=== PATIENT | female | born 1985 | race Caucasian/White ===

== ENCOUNTER 2018-04-08 19:54 | Inpatient (IN) | payer BC ==
[2018-04-08] MEDS ORDERED: Ibuprofen 800 MG TAB PO PRN (19:59)
[2018-04-08] MEDS ORDERED: Promethazine HCl 25 MG/ML VIAL IM PRN (19:59)
[2018-04-08] MEDS ORDERED: Lidocaine 1% (PF) 30 ML VIAL SC PRN (19:59)
[2018-04-08] MEDS ORDERED: Acetaminophen 500 MG TAB PO PRN (19:59)
[2018-04-08] MEDS ORDERED: HYDROcodone/Acetaminophen 5/325 mg Tablet PO PRN ×2 (19:59)
[2018-04-08] MEDS ORDERED: Docusate 100 MG CAP PO PRN (19:59)
[2018-04-08] MEDS ORDERED: NS w/ Oxytocin 10 units 500 ML IV SCH ×2 (19:59)
[2018-04-08] MEDS ORDERED: Misoprostol 200 MCG TAB PR PRN (19:59)
[2018-04-08] MEDS ORDERED: Ondansetron PF 4 MG/2 ML Vial IVP PRN (19:59)
[2018-04-08] MEDS ORDERED: Zolpidem Tartrate 5 MG TAB PO PRN (19:59)
[2018-04-08] MEDS ORDERED: Diphenoxylate HCl/Atropine Tablet PO PRN ×2 (19:59)
[2018-04-08] MEDS ORDERED: NS / Oxytocin 40 units/1000ml 1,000 ML IV PRN (19:59)
[2018-04-08 20:24] VITALS: BMI 28.3
[2018-04-08 20:50] LABS: Hemoglobin 11.8 g/dL (12.0-16.0); Mean Corpuscular HGB CONC 32.9 g/dL (32.0-36.0); Mean Corpuscular Hemoglobin 27.7 pg (27.0-31.0); Mean Corpuscular Volume 84.2 fL (78.0-98.0); Mean Platelet Volume 9.4 fL (7.4-10.4); Platelet Count 201 thou/uL (130-400); RBC Distribution Width 14.1 % (11.5-14.5); Red Blood Cell (RBC) Count 4.25 mill/uL (4.20-5.40)
[2018-04-08] MEDS: Lactated Ringer's 1,000 ML IV SCH (20:52)
[2018-04-08] MEDS: Misoprostol 100 MCG TAB VAG SCH ×2 (20:52→23:52)
[2018-04-08 21:27] LABS: Syphilis Antibody Nonreactive (Nonreactive); Syphilis Antibody Index 0.05 S/CO (<1.00 Non-Reactive)
[2018-04-09 01:07] LABS: HBSAg Index 0.17 S/CO (0-0.99); Hep B Surf Ag Non-Reactive S/CO (NonReactive)
[2018-04-09] MEDS: Misoprostol 100 MCG TAB VAG SCH ×2 (02:49→11:24)
[2018-04-09] MEDS: Lactated Ringer's 1,000 ML IV SCH ×2 (02:51→08:01)
[2018-04-09] MEDS: Butorphanol Tartrate 1 MG/ML VIAL SLOW IVP PRN ×2 (04:18→06:10)
[2018-04-09] MEDS ORDERED: Fentanyl 4 mcg/Bup 0.1% Cadd 100 ML ONE (06:15)
[2018-04-09] MEDS ORDERED: Lidocaine 1.5% w/Epi 1:200K 30 ML VIAL (Epid Use) ONE (07:08)
[2018-04-09] MEDS ORDERED: Acetaminophen 325 MG TAB PO PRN (07:25)
[2018-04-09] MEDS ORDERED: Naloxone HCl 0.4 mg/ml Vial IVP PRN ×2 (07:25)
[2018-04-09] MEDS ORDERED: Promethazine HCl 25 MG/ML VIAL IM PRN (07:25)
[2018-04-09] MEDS ORDERED: ePHEDrine/0.9% NaCl/PF SYRINGE 50 mg/10 ml SLOW IVP PRN (07:25)
[2018-04-09] MEDS ORDERED: Ondansetron PF 4 MG/2 ML Vial IVP PRN ×3 (07:25→09:03)
[2018-04-09] MEDS ORDERED: Eucerin (Mineral Oil/Petrolatum,White) 30 gm Jar TOP PRN (07:25)
[2018-04-09] MEDS ORDERED: diphenhydrAMINE 50 MG/ML VIAL IVP PRN (07:25)
[2018-04-09] MEDS ORDERED: Lactated Ringer's 500 ML IV PRN (07:25)
[2018-04-09] MEDS ORDERED: Fentanyl 4 mcg/Bupivacaine 0.1% Cassette 100 ML EPIDURAL SCH (07:30)
[2018-04-09] MEDS ORDERED: Communication Order-Pharmacy FS SCH (07:30)
[2018-04-09] MEDS ORDERED: Preparation H Ointment 28 GM TUBE PR PRN ×2 (08:48→09:03)
[2018-04-09] MEDS ORDERED: Bisacodyl 10 MG SUPP PR PRN ×2 (08:48→08:59)
[2018-04-09] MEDS ORDERED: Milk Of Magnesia 30 ML UDCUP PO PRN ×2 (08:48→09:02)
[2018-04-09] MEDS ORDERED: Adacel (T-DAP) 0.5 ML SYRINGE IM ONE (08:48)
[2018-04-09] MEDS ORDERED: diphenhydrAMINE 25 MG CAP PO PRN ×2 (08:48→08:59)
[2018-04-09] MEDS ORDERED: Benzocaine/Menthol 20-0.5% 60 ML CAN TOP PRN ×2 (08:48→08:59)
[2018-04-09] MEDS ORDERED: Zolpidem Tartrate 5 MG TAB PO PRN (08:48)
[2018-04-09] MEDS ORDERED: Misoprostol 200 MCG TAB VAG PRN ×2 (08:48→09:02)
[2018-04-09] MEDS ORDERED: Lanolin Ointment 7 GM TUBE TOP PRN ×2 (08:48→09:02)
[2018-04-09] MEDS ORDERED: HYDROcodone/Acetaminophen 5/325 mg Tablet PO PRN ×3 (08:48→09:00)
[2018-04-09] MEDS ORDERED: Docusate Calcium (SURFAK) 240 MG CAP PO SCH (09:00)
[2018-04-09] MEDS ORDERED: NS / Oxytocin 40 units/1000ml 1,000 ML IV SCH ×2 (09:00→09:15)
[2018-04-09] MEDS ORDERED: Prenatal Vitamin 1 TAB PO SCH (09:00)
[2018-04-09] MEDS: Docusate Calcium (SURFAK) 240 MG CAP PO SCH ×2 (11:23→21:06)
[2018-04-09] MEDS ORDERED: Ibuprofen 800 MG TAB PO SCH (14:00)
[2018-04-09] MEDS ORDERED: Enoxaparin Sodium 30 MG/0.3 ML SYRINGE SC SCH ×2 (15:00)
[2018-04-09] MEDS: Ibuprofen 800 MG TAB PO SCH ×2 (15:21→22:27)
[2018-04-09] MEDS ORDERED: Ferrous Sulfate 325 MG TAB PO SCH (17:00)
[2018-04-09] MEDS: Ferrous Sulfate 325 MG TAB PO SCH (17:14)
[2018-04-09] MEDS: HYDROcodone/Acetaminophen 5/325 mg Tablet PO PRN (21:04)
[2018-04-10] MEDS: HYDROcodone/Acetaminophen 5/325 mg Tablet PO PRN ×3 (04:00→21:23)
[2018-04-10] MEDS: Ibuprofen 800 MG TAB PO SCH ×3 (06:07→21:23)
[2018-04-10] MEDS: Ferrous Sulfate 325 MG TAB PO SCH ×2 (09:22→18:50)
[2018-04-10] MEDS: Prenatal Vitamin 1 TAB PO SCH (09:22)
[2018-04-10] MEDS: Docusate Calcium (SURFAK) 240 MG CAP PO SCH ×2 (13:19→21:23)
[2018-04-10 20:26] VITALS: TEMP 98.1
[2018-04-11] MEDS: Ibuprofen 800 MG TAB PO SCH (05:58)
[2018-04-11 08:23] VITALS: BP 110/63
[2018-04-11] MEDS: Ferrous Sulfate 325 MG TAB PO SCH (09:10)
[2018-04-11] MEDS: Prenatal Vitamin 1 TAB PO SCH (09:51)
[2018-04-11] MEDS: Docusate Calcium (SURFAK) 240 MG CAP PO SCH (09:51)
== END 2018-04-11 12:32 | disposition home or self-care (01) | DRG 806 ==
LOC: L&D 19:54 → 3SE 04-09 11:37
PROVIDERS: ADMIT Obstetrics & Gynecology; ATTEND Obstetrics & Gynecology
PROC: 3E0P7VZ Introduction of Hormone into Female Reproductive, Via Natural or Artificial Opening (ICD-10-PCS; 2018-04-08)
PROC: 10E0XZZ Delivery of Products of Conception, External Approach (ICD-10-PCS; principal; 2018-04-09)
PROC: 0W8NXZZ Division of Female Perineum, External Approach (ICD-10-PCS; 2018-04-09)
DX: O99.12 Other diseases of the blood and blood-forming organs and certain disorders involving the immune mechanism complicating childbirth (principal); D68.59 Other primary thrombophilia; Z37.0 Single live birth; Z3A.38 38 weeks gestation of pregnancy
CPT/HCPCS: 36415; 51702; 85027; 86780; 86850; 86900; 86901; 87340; J0595; J1650; J2001